=== PATIENT | female | born 1960 | race Caucasian/White ===

== ENCOUNTER 2020-09-09 07:37 | Outpatient (CLI) | payer OTHER ==
[2020-09-09 16:25] LABS: Bilirubin Neg (Negative); Blood, Urine Negative (Negative); Clarity Clear (Clear); Glucose, Urine (Dipstick) Normal (Negative); Ketone, Urine Negative (Negative); Leukocyte Negative (Negative); Nitrite Negative (Negative); Protein, Urine (Dipstick) Negative (Neg-Trace); Specific Gravity, Urine 1.015 (1.002-1.036); Urobilinogen Normal mg/dL (Less than 2)
[2020-09-09 16:33] LABS: #Eosinphils 0.3 10x3/uL (0.0-0.5); #Monocytes 0.3 10x3/uL (0.0-1.1); %Basophils 0.5 % (0.0-2.0); %Eosinophils 7.7 % (0.0-6.0); %Lymphocytes 36.8 % (18.0-47.0); %Monocytes 7.5 % (0.0-10.0); %Neutrophils 47.3 % (40.0-75.0); Mean Corpuscular HGB CONC 34.1 G/DL (32.0-36.0); Mean Corpuscular Hemoglobin 30.8 PG (27.0-33.0); Mean Corpuscular Volume 90.3 fl (80.0-100.0); Mean Platelet Volume 12.6 fl (7.4-10.4); Platelet Count 217 10x3/uL (130-400); RBC Distribution Width 12.4 % (11.5-14.5); Red Blood Cell (RBC) Count 4.54 10x6/uL (3.90-5.20); White Blood Cell (WBC) Count 4.1 10x3/uL (4.5-11.0)
[2020-09-09 18:24] LABS: RBC/HPF None Seen HPF (0-3); Squamous Epithelial 0-3 HPF (0-3); WBC/HPF None Seen HPF (0-3)
[2020-09-09 18:25] LABS: Bacteria/HPF Rare-Few HPF (None Seen)
[2020-09-10 01:56] LABS: SARS-CoV-2 PCR by NAA Not Detected (NotDetected)
--- NOTE | 2020-09-10 12:37 | EKG ---
Test Reason : Blood Pressure : / mmHG Vent. Rate : 086 BPM Atrial Rate : 086 BPM P-R Int : 142 ms QRS Dur : 076 ms QT Int : 352 ms P-R-T Axes : 067 -19 039 degrees QTc Int : 421 ms Normal sinus rhythm Poor R wave progression No previous ECGs available Confirmed by STEW LACEY ([id number]) on 09/10/2020 12:37:20 PM Referred By: PATRICIA Confirmed By:STEW LACEY
== END 2020-09-09 07:38 | disposition home or self-care (01) ==
LOC: LABBT 07:37
PROVIDERS: ATTEND Orthopaedic Surgery Hand Surgery
DX: Z01.818 Encounter for other preprocedural examination (principal); S62.624A Displaced fracture of middle phalanx of right ring finger, initial encounter for closed fracture; Z20.822 Contact with and (suspected) exposure to COVID-19
CPT/HCPCS: 81001; 85025; 87635; 93005; 93010; U0003; U0005

== ENCOUNTER 2020-09-14 05:52 | Day surgery (SDC) | payer OTHER ==
[2020-09-10 15:47] VITALS: BMI 32.1
[2020-09-14] MEDS ORDERED: Fentanyl 100 MCG/2 ML VIAL ONE (08:36)
[2020-09-14] MEDS ORDERED: Sodium Chloride 0.9% 10 ML ONE (09:16)
[2020-09-14] MEDS ORDERED: Bupivacaine PF 0.5% 30 ML VIAL ONE (09:16)
[2020-09-14] MEDS ORDERED: Bacitracin Zinc Ointment 30 gm TUBE ONE (09:16)
[2020-09-14] MEDS ORDERED: Dexamethasone 20 MG/5 ML VIAL ONE (09:42)
[2020-09-14] MEDS ORDERED: Ketorolac Tromethamine 30 MG/ML VIAL ONE (09:42)
[2020-09-14] MEDS ORDERED: Ondansetron PF 4 MG/2 ML Vial ONE (09:42)
[2020-09-14] MEDS ORDERED: Lidocaine 1% PF 5 ML VIAL ONE (09:42)
[2020-09-14] MEDS ORDERED: PROPOFOL 200 MG/20 ML VIAL ONE (09:42)
[2020-09-14] MEDS ORDERED: PHENYLEPHRINE-NS 100 MCG/ML 10 ML SYRINGE ONE (09:42)
[2020-09-14] MEDS ORDERED: ePHEDrine 50 MG/ML VIAL ONE (09:42)
--- NOTE | 2020-09-14 17:45 | RAD ---
FINGERS RIGHT HAND: 09/14/20 Four fluoroscopic images presented from the OR. INDICATIONS: Imaging during open reduction and internal fixation right ring finger. FINDINGS/IMPRESSION: These images show three small screws placed transfixing the middle phalanx of the ring finger. POS: AGW
--- NOTE | 2020-09-14 18:08 | OP ---
DATE OF PROCEDURE: 09/14/2020 PREOPERATIVE DIAGNOSIS: Right ring finger, middle phalanx fracture, malunion, rotational. POSTOPERATIVE DIAGNOSES: Right ring finger, middle phalanx fracture, malunion, rotational. Tendon adhesions to the fracture where it healed in abnormal external rotation. PROCEDURE PERFORMED: 1. Extensor tenolysis, middle phalanx. 2. Right ring finger osteotomy with open reduction and internal fixation, middle phalanx and then minor bone grafting with putty, 0.5 mL. 3. C-arm supervision less than or equal to 1 hour. INDICATIONS: Fracture, 4-month-old presentation, patient coming to our attention that she noticed marked increase in malrotation during the Holiday time. The fracture line was still visible with tenderness, so we felt that we could do a at site in situ osteotomy via correction of the deformity. DESCRIPTION OF PROCEDURE: After successful general endotracheal anesthesia, the limb was prepped and draped. We then outlined via time out the appropriate site, side, and consent, and they all matched the indicated procedure and site. C-arm was brought into the field. We saw where the fracture exited the radial portion of the neck of the subchondral middle phalanx. It was here we made a distal interval incision. We then inflated the tourniquet with exsanguination of limb, gave the patient a total of 20 mL of 0.5% Marcaine, began. I carried the incision down through skin and subcutaneous tissue and just radial to the extensor terminal tendon, leaving a flap of tissue for later closure, we elevated the tendon and noticed there were some adhesions to the periosteum, so we performed extensor tenolysis over 2 cm area. We then visualized with the help of C-arm the fracture as it exited the radial cortex which was about 1/2 to 1/3rd the width of the cortex at this site. We then found the primary fracture line obliquely, which was almost 2 cm long and then once we did this, protecting the extensor mechanism, we were able to completely reproduce the fracture. We then rotated it in appropriate rotation, first making it parallel with the middle finger. We had visualized the opposite side and made it match. We held this with a large clamp and then placed 3 screws, none under lag and maintained the rotation. This left an open interval of almost 1.5 mm in the dorsal one-third of the fracture and so we filled this in with putty, bone type. We then released the tourniquet, obtained hemostasis. The radiographs were excellent and clinical malrotation was gone. The extensor mechanism, which has only been released from its investing fascia, was repaired at the investing fascia with a 3-0 Vicryl undyed interrupted. We then obtained hemostasis with the tourniquet down and then closed the incision with interrupted 4-0 nylon simple pattern. Bulky dressing was applied along with a short arm splint and the patient left the operating room without evidence of anesthetic or operative complication. Job ID: [id number]
== END 2020-09-14 12:35 | disposition home or self-care (01) ==
LOC: SDC 05:52
PROVIDERS: ATTEND Orthopaedic Surgery Hand Surgery
PROC: 0PST04Z Reposition Right Finger Phalanx with Internal Fixation Device, Open Approach (ICD-10-PCS; principal; 2020-09-14)
DX: S62.602A Fracture of unspecified phalanx of right middle finger, initial encounter for closed fracture (principal); S62.604A Fracture of unspecified phalanx of right ring finger, initial encounter for closed fracture; M19.90 Unspecified osteoarthritis, unspecified site; I10 Essential (primary) hypertension; E03.9 Hypothyroidism, unspecified; M06.9 Rheumatoid arthritis, unspecified; E66.9 Obesity, unspecified; Z68.32 Body mass index [BMI] 32.0-32.9, adult; Z79.899 Other long term (current) drug therapy; Z87.891 Personal history of nicotine dependence; W23.1XXA Caught, crushed, jammed, or pinched between stationary objects, initial encounter
CPT/HCPCS: 76000; C1713; J0690; J1100; J1885; J2405; J2704; J3010; J3490; S0020